=== PATIENT | female | born 1970 | race Native Hawaiian/Other Pacific Islander ===

== ENCOUNTER 2016-07-31 13:25 | Inpatient (IN) | payer OTHER ==
[~2016-07-31] VITALS: Ht 157.5 cm; Wt 44.5 kg
[2016-07-31] VITALS (9 sets, daily range): BP systolic 87–111; BP diastolic 51–72; TEMP 98–98.6; BMI 17.9
[~2016-07-31 13:25] MED LIST: ALLEGRA ALRG180 M1 PO; AMBIEN5 MG PO; BUDE1AER5 INH; CARV6.25 PO; CLON1TAB18 PO; DIAZEPAM10 MG PO; HYDR-2748 PO; HYDR10TA47 PO; LYRICA300 MG PO; NUCYNTA ER200 MG PO; NUCYNTA ER250 MG PO; PAXIL20 MG PO; ULTRACET1 TAB PO
[2016-07-31 15:43] LABS: POTASSIUM 3.3 mmol/L (3.6-5.2); SODIUM 140 mmol/L (136-145)
[2016-07-31 16:26] LABS: PLATELET COUNT 275 K/uL (152-353)
[2016-08-01] VITALS (21 sets, daily range): BP systolic 90–146; BP diastolic 40–92; TEMP 97.3–98.4
[2016-08-01 08:06] LABS: PLATELET COUNT 193 K/uL (152-353)
[2016-08-01 08:42] LABS: POTASSIUM 3.3 mmol/L (3.6-5.2)
[2016-08-01 09:10] LABS: SODIUM 143 mmol/L (136-145)
[2016-08-01] MEDS ORDERED: HYDR10TA47 PO (10:54)
[2016-08-02] VITALS (29 sets, daily range): BP systolic 85–116; BP diastolic 41–68; TEMP 98–98.3; BMI 21.0
[2016-08-02 05:39] LABS: PLATELET COUNT 169 K/uL (152-353)
[2016-08-02 05:57] LABS: SODIUM 142 mmol/L (136-145)
[2016-08-02 21:51] LABS: PARTIAL THROMBOPLASTIN TIME 25.2 SECONDS (24.5-33.6)
[2016-08-03] VITALS (11 sets, daily range): BP systolic 85–110; BP diastolic 45–70; TEMP 97.9–98.2
[2016-08-03 05:22] LABS: PLATELET COUNT 155 K/uL (152-353)
[2016-08-03 06:08] LABS: POTASSIUM 3.3 mmol/L (3.6-5.2)
[2016-08-03 06:45] LABS: SODIUM 142 mmol/L (136-145)
[2016-08-25] MEDS ORDERED: TOPIRAMATE ER25 MG PO (16:03)
[2016-08-25] MEDS ORDERED: CYPROHEPTADINE HCL PO (16:07)
== END 2016-08-03 14:50 | disposition home health service (06) | DRG 917 ==
LOC: ED 13:25 → ICU 17:02
PROVIDERS: Emergency Medicine; ADMIT Specialist
DX: T42.4X1A Poisoning by benzodiazepines, accidental (unintentional), initial encounter (principal); G92 Toxic encephalopathy; E87.6 Hypokalemia; E88.09 Other disorders of plasma-protein metabolism, not elsewhere classified; R41.82 Altered mental status, unspecified; T42.4X5A Adverse effect of benzodiazepines, initial encounter; Y92.89 Other specified places as the place of occurrence of the external cause
CPT/HCPCS: 36415; 36600; 51702; 80053; 80307; 81000; 82140; 82550; 82553; 82570; 82805; 83605; 83735; 83880; 84100; 84300; 84484; 84540; 85027; 85379; 85610; 85730; 93005; 96365; 96372; 96375; 96376; 99285; G0479; J1644; J2060; J2405; J3411; J3475; J3480; J3490

== ENCOUNTER 2017-08-14 05:44 | Emergency (ER) | payer OTHER ==
[~2017-08-14] VITALS: Ht 170.2 cm; Wt 51.7 kg
[~2017-08-14 05:44] MED LIST changes: +CYPROHEPTADINE HCL PO; +TOPIRAMATE ER25 MG PO
[2017-08-14 06:13] LABS: PLATELET COUNT 200 K/uL (152-353)
[2017-08-14 06:28] LABS: POTASSIUM 3.7 mmol/L (3.6-5.2)
[2017-08-14 07:28] VITALS: BP 119/65; TEMP 98.1
== END 2017-08-14 07:30 | disposition home or self-care (01) ==
LOC: ED 05:44
PROVIDERS: Internal Medicine
DX: B34.9 Viral infection, unspecified (principal); G44.89 Other headache syndrome; R11.2 Nausea with vomiting, unspecified; A08.8 Other specified intestinal infections
CPT/HCPCS: 36415; 80053; 85027; 96374; 96375; 99283; J1885; J2550

== ENCOUNTER 2018-02-15 04:53 | Emergency (ER) | payer OTHER ==
[~2018-02-15] VITALS: Ht 170.2 cm; Wt 45.4 kg
[2018-02-15 05:49] LABS: PLATELET COUNT 211 K/uL (152-353)
[2018-02-15 06:00] LABS: POTASSIUM 3.2 mmol/L (3.6-5.2)
[2018-02-15 07:04] VITALS: BP 112/42; TEMP 97.9
== END 2018-02-15 07:14 | disposition home or self-care (01) ==
LOC: ED 04:53
PROVIDERS: Internal Medicine
DX: R44.2 Other hallucinations (principal); F16.90 Hallucinogen use, unspecified, uncomplicated; F12.90 Cannabis use, unspecified, uncomplicated; D72.828 Other elevated white blood cell count
CPT/HCPCS: 36415; 36600; 80053; 80307; 80320; 80329; 81000; 82140; 82805; 85027; 99283

== ENCOUNTER 2019-04-15 12:53 | Outpatient (CLI) | payer OTHER | END 2019-04-15 19:45 | disposition home or self-care (01) | LOC: RAD 12:53 | DX: M25.511 Pain in right shoulder (principal) ==